=== PATIENT | female | born 1995 | race Caucasian/White ===

== ENCOUNTER 2018-03-30 09:07 | Emergency (ER) | payer OTHER ==
[~2018-03-30] VITALS: Ht 152.4 cm; Wt 88.9 kg
[2018-03-30 12:06] VITALS: BP 116/78
== END 2018-03-30 12:06 | disposition home or self-care (01) ==
LOC: EME 09:07
DX: R07.0 Pain in throat (principal); J30.2 Other seasonal allergic rhinitis; R13.10 Dysphagia, unspecified
CPT/HCPCS: 87651 90; 99281; 99283; J1100